=== PATIENT | male | born 1980 | race Caucasian/White ===

== ENCOUNTER 2022-03-21 10:04 | Emergency (ER) | payer BC ==
[~2022-03-21] VITALS: Ht 182.9 cm; Wt 129.0 kg
[2022-03-21] MEDS ORDERED: KETOROLAC 30MG/ML VIAL IV STA (13:06)
[2022-03-21] MEDS ORDERED: ONDANSETRON HCL 4MG/2ML INJ IV STA (13:06)
[2022-03-21] MEDS ORDERED: SODIUM CHLORIDE 0.9% 1,000 ML IV ONE (13:15)
[2022-03-21 13:31] LABS: BASOPHILS % 0.7 % (0.0-2.0); EOSINOPHILS % 0.5 % (0.0-5.0); HEMATOCRIT. 43.2 % (42.0-52.0); HEMOGLOBIN. 14.1 g/dL (14.0-18.0); LYMPHOCYTES % 26.8 % (20.0-50.0); MEAN CORPUSCULAR HEMOGLOBIN 27.2 pg (28.0-32.0); MEAN CORPUSCULAR VOLUME 83.5 fL (80.0-94.0); MEAN PLATELET VOLUME 7.6 fl (7.4-10.4); MONOCYTES % 6.8 % (2.0-8.0); NEUTROPHILS % 65.2 % (40.0-76.0); PLATELET 295 x1000/uL (130-400); RED BLOOD CELL COUNT 5.17 mill/uL (4.7-6.1); RED CELL DISTRIBUTION WIDTH 14.1 % (11.6-14.6)
[2022-03-21 13:38] LABS: CHLORIDE 104 mEq/L (98-107)
[2022-03-21 13:41] LABS: PROTHROMBIN TIME 10.8 sec (9.6-11.0)
[2022-03-21 13:57] VITALS: BP 142/89
[2022-03-21 14:27] LABS: CLARITY URINE CLEAR (CLEAR); COLOR URINE YELLOW (YELLOW); KETONES URINE NEGATIVE (NEGATIVE); LEUKOCYTE ESTERASE URINE NEGATIVE (NEGATIVE); NITRITE URINE NEGATIVE (NEGATIVE); OCCULT BLOOD URINE NEGATIVE (NEGATIVE); PH URINE 6.5 (4.5-8.0); PROTEIN URINE NEGATIVE (NEGATIVE); SPECIFIC GRAVITY URINE 1.014 (1.005-1.030); UROBILINOGEN URINE 0.2 E.U./dL (0.2-1.0)
[2022-03-21] MEDS ORDERED: MORP15TA67 MT (15:34)
[2022-03-21] MEDS ORDERED: TOPUD PO (15:34)
[2022-03-21] MEDS ORDERED: IBUP-2028 MT (15:34)
== END 2022-03-21 16:35 | disposition home or self-care (01) ==
LOC: ER 10:04
DX: N20.0 Calculus of kidney (principal); K76.0 Fatty (change of) liver, not elsewhere classified; I10 Essential (primary) hypertension
CPT/HCPCS: 36415; 74176; 80053; 81003; 83690; 85025; 85610; 96361; 96374; 96375; 99284; J1885; J2405; J7030